=== PATIENT | female | born 1990 | race Caucasian/White ===

== ENCOUNTER 2020-03-01 18:33 | Emergency (ER) | payer BC ==
[~2020-03-01] VITALS: Ht 165.1 cm; Wt 113.6 kg
--- NOTE | 2020-03-01 18:44 | PHYS DOC ---
General Adult EDM: Chief Complaint: ALLERGIC REACTION HPI: HPI: Patient is a 29 year old female who presents the ED today complaining of facial swelling. Patient states she was walking her dog a couple minutes ago when she developed sudden swelling bilateral eyes. Denies any chest pain or shortness o f breath. She states she feels anxious. Review of Systems: Review of Systems: Constitutional: Denies fever or chills. [] Eyes: Reports bilateral eye swelling. Denies change in visual acuity. [] HENT: Denies nasal congestion or sore throat. [] Respiratory: Denies cough or shortness of breath. [] Cardiovascular: Denies chest pain or edema. [] GI: Denies abdominal pain, nausea, vomiting, bloody stools or diarrhea. [] : Denies dysuria. [] Musculoskeletal: Denies back pain or joint pain. [] Integument: Denies rash. [] Neurologic: Denies headache, focal weakness or sensory changes. [] Psychiatric: Denies depression or anxiety. [] Heart Score: Risk Factors: Risk Factors: DM, Current or recent (<one month) smoker, HTN, HLP, family history of CAD, obesity. Risk Scores: Score 0 - 3: 2.5% MACE over next 6 weeks - Discharge Home Score 4 - 6: 20.3% MACE over next 6 weeks - Admit for Clinical Observation Score 7 - 10: 72.7% MACE over next 6 weeks - Early Invasive Strategies Physical Exam: PE: Constitutional: Well developed, well nourished, no acute distress, non-toxic appearance. [] HENT: Normocephalic, atraumatic, bilateral external ears normal, oropharynx moist, no oral exudates Eyes: PERRLA, EOMI, conjunctiva normal, no discharge. Bilateral upper eyelids have small amount of swelling. Neck: Normal range of motion, no tenderness, supple, no stridor. [] Cardiovascular:Heart rate regular rhythm, no murmur [] Lungs & Thorax: Bilateral breath sounds clear to auscultation [] Abdomen: Bowel sounds normal, soft, no tenderness, no masses, no pulsatile masses. [] Skin: Warm, dry, no erythema, no rash. [] Back: No tenderness, no CVA tenderness. [] Extremities: No tenderness, no cyanosis, no clubbing, ROM intact, no edema. [] Neurologic: Alert and oriented X 3, normal motor function, normal sensory fun ction, no focal deficits noted. [] Psychologic: Affect normal, judgement normal, mood normal. [] EKG: EKG: [] Radiology/Procedures: Radiology/Procedures: [] Course & Med Decision Making: Course & Med Decision Making Pertinent Labs and Imaging studies reviewed. (See chart for details) This is a ten 9-year-old female patient presenting to the ED today with bilateral eye lid swelling that she noted a couple minutes ago while walking her dog. Her airways open. She was given Solu-Medrol Benadryl and Pepcid. Symptoms have improved. Discharged home with prednisone Pepcid and Benadryl. Provided return precautions and discharged in stable condition. Gifty Disclaimer: Gifty Disclaimer: This electronic medical record was generated, in whole or in part, using a voice recognition dictation system. Departure Departure Impression: Primary Impression: Allergic reaction Qualified Codes: T78.40XA - Allergy, unspecified, initial encounter Disposition: 01 DC HOME SELF CARE/HOMELESS Condition: STABLE Patient Instructions: Allergies, Generic Additional Instructions: You were seen for an allergic reaction. Use the prescribed medications as ordered. Follow-up with your doctor in 1 week, come back to the ED at any point symptoms worsen Scripts Diphenhydramine Hcl (BENADRYL ALLERGY) 25 Mg Tablet 1 TAB PO Q6HRS PRN for RASH, #30 TAB 0 Refills Prov: SONDRA ARMSTRONG ENTERTAINMENT MANAGER 03/01/20 Famotidine (FAMOTIDINE) 20 Mg Tablet 20 MG PO DAILY, #5 TAB Prov: MUTFABIENNEASONDRA ENTERTAINMENT MANAGER 03/01/20 Prednisone (PREDNISONE) 50 Mg Tablet 1 TAB PO DAILY, #5 TAB Prov: MUTUNGASONDRA ENTERTAINMENT MANAGER 03/01/20 SONDRA ARMSTRONG ENTERTAINMENT MANAGER Mar 01, 2020 18:44
[2020-03-01] MEDS ORDERED: diphenhydrAMINE 50 MG/ML VIAL IM ONE (18:45)
[2020-03-01] MEDS ORDERED: FAMOTIDINE 20 MG TABLET. PO ONE (18:45)
[2020-03-01] MEDS ORDERED: methylPREDNISolone SOD SUCC PF 125 MG/2 ML VIAL. IM ONE (18:45)
[2020-03-01] MEDS ORDERED: PRED50TA PO (19:15)
[2020-03-01] MEDS ORDERED: DIPH25TA64 PO (19:15)
[2020-03-01] MEDS ORDERED: FAMO20TA5 PO (19:15)
[2020-03-01 19:34] VITALS: BP 182/91
== END 2020-03-01 19:36 | disposition home or self-care (01) ==
LOC: ER 18:33
DX: T78.49XA Other allergy, initial encounter (principal); R60.0 Localized edema; H57.89 Other specified disorders of eye and adnexa; Y92.89 Other specified places as the place of occurrence of the external cause
CPT/HCPCS: 96372; 99284; J1200; J2930